=== PATIENT | female | born 1950 | race Caucasian/White ===

== ENCOUNTER 2019-05-20 11:49 | Emergency (ER) | payer MEDICARE, OTHER ==
[2019-05-20] MEDS ORDERED: ASPIRIN 81 MG TABLET, CHEWABLE PO ONE (12:14)
--- NOTE | 2019-05-20 12:14 | ER Document Report ---
ED Medical Screen (RME) - General Chief Complaint: Blood Pressure Problem Stated Complaint: ARM PAIN Time Seen by Provider: 05/20/19 12:09 Mode of Arrival: Ambulatory Information source: Patient Notes: 69-year-old female presents to ED for complaint of left arm and hand pain after she fell a week ago Wednesday. When they were checking her they found she had high blood pressure and she does have a history of high blood pressure she is not on any medications for this high blood pressure. Her blood pressure is 230/99. Manual cuff with a large cuff is 236/112 right arm. I have greeted and performed a rapid initial assessment of this patient. A comprehensive ED assessment and evaluation of the patient, analysis of test results and completion of medical decision making process will be conducted by an additional ED providers. - Related Data Allergies/Adverse Reactions: No Known Allergies Allergy (Unverified 05/20/19 12:08) Past Medical History - Social History Chew tobacco use (# tins/day): No Frequency of alcohol use: Rare Drug Abuse: None Physical Exam - Vital signs Vitals: Temp Pulse Resp BP Pulse Ox 98 F 78 20 230/99 H 98 05/20/19 11:56 05/20/19 11:56 05/20/19 11:56 05/20/19 11:56 05/20/19 11:56 Course - Vital Signs Vital signs: Temp Pulse Resp BP Pulse Ox 98 F 78 20 230/99 H 98 05/20/19 11:56 05/20/19 11:56 05/20/19 11:56 05/20/19 11:56 05/20/19 11:56
[2019-05-20] MEDS ORDERED: HYDRALAZINE HCL INJ/PF 20 MG/1 ML SDV IV ONE (13:16)
[2019-05-20 13:17] LABS: ABSOLUTE BASOPHILS # (AUTO) 0.1 10^3/uL (0.0-0.2); ABSOLUTE EOSINOPHILS # (AUTO) 0.2 10^3/uL (0.0-0.6); ABSOLUTE LYMPHOCYTES (AUTO) 3.8 10^3/uL (0.5-4.7); ABSOLUTE MONOCYTES (AUTO) 0.6 10^3/uL (0.1-1.4); ABSOLUTE NEUT (AUTO) 3.7 10^3/uL (1.7-8.2); BASOPHILS % (AUTO) 0.7 % (0-2); EOSINOPHILS % (AUTO) 2.1 % (0-6); HEMATOCRIT 48.8 % (36.0-47.0); HEMOGLOBIN 16.9 g/dL (12.0-15.5); LYMPHOCYTES % (AUTO) 45.7 % (13-45); MEAN CORPUSCULAR HEMOGLOBIN 30.5 pg (27.0-33.4); MEAN CORPUSCULAR HGB CONC 34.6 g/dL (32.0-36.0); MEAN CORPUSCULAR VOLUME 88 fl (80-97); PLATELET COUNT 226 10^3/uL (150-450); RED BLOOD COUNT 5.54 10^6/uL (3.72-5.28); RED CELL DISTRIBUTION WIDTH 13.4 % (11.5-14.0); SEGMENTED NEUTROPHILS % (AUTO) 44.5 % (42-78); TOTAL CELLS COUNTED % (AUTO) 100 %; WHITE BLOOD COUNT 8.3 10^3/uL (4.0-10.5)
[2019-05-20 13:18] LABS: INTERNATIONAL RATION (INR) 0.99; PROTHROMBIN TIME 13.1 SEC (11.4-15.4)
--- NOTE | 2019-05-20 13:18 | ER Document Report ---
ED General - General Chief Complaint: Blood Pressure Problem Stated Complaint: ARM PAIN Time Seen by Provider: 05/20/19 12:09 Mode of Arrival: Ambulatory Notes: Patient is a 69-year-old female who presents emergency department with a chief complaint of left hand pain. Patient also states that she has left hand and le ft hip pain from falling a week and a half ago. Patient states that she did not notice any bruising, but continues to have pain to her left third and fourth fingers. She came in the hospital and she also was severely hypertensive. Her blood pressure is 223/120. Patient was taking hydrochlorothiazide and lisinopril back in September and stopped taking her medications. She states that she gradually ran out and has not found a primary care provider. She is originally from [place]. Patient denies any chest pain, shortness of breath, difficulty breathing, or any other cardiovascular symptoms. - Related Data Allergies/Adverse Reactions: No Known Allergies Allergy (Unverified 05/20/19 12:08) Past Medical History - General Information source: Patient - Social History Smoking Status: Never Smoker Chew tobacco use (# tins/day): No Frequency of alcohol use: Rare Drug Abuse: None Family History: Reviewed & Not Pertinent Patient has suicidal ideation: No Patient has homicidal ideation: No Review of Systems - Review of Systems Notes: REVIEW OF SYSTEMS: CONSTITUTIONAL : Denies recent illness. Denies recent unintentional weight loss. Denies fever, chills, or sweats. EENT: Denies eye, ear, throat, or mouth pain, discharge, or symptoms. Denies nasal or sinus congestion. CARDIOVASCULAR: Denies chest pain. RESPIRATORY: Denies shortness of breath, cough, congestion, difficulty breathing, or wheezing. GASTROINTESTINAL: Denies nausea, vomiting, and diarrhea. Denies abdominal pain. Denies constipation. GENITOURINARY: Denies difficulty urinating, burning, blood in urine, urgency or frequency. MUSCULOSKELETAL: Denies neck and back pain. See HPI. SKIN: Denies rash, itchiness, or lesions HEMATOLOGIC : Denies easy bruising or bleeding. LYMPHATIC: Denies swollen, painful, enlarged glands. NEUROLOGICAL: Denies no numbness or tingling denies weakness. Denies headache. Denies altered mental status. Denies alteration in speech. PSYCHIATRIC: Denies stress, anxiety, alteration in sleep patterns, or depression. All other systems reviewed and negative. Physical Exam - Vital signs Vitals: Temp Pulse Resp BP Pulse Ox 98 F 78 20 230/99 H 98 05/20/19 11:56 05/20/19 11:56 05/20/19 11:56 05/20/19 11:56 05/20/19 11:56 - Notes Notes: PHYSICAL EXAMINATION: GENERAL: Appears well, obese, no acute distress. HEAD: Normocephalic, atraumatic. EYES: PERRL, conjunctiva normal, all extraocular movements intact, sclera nonicteric ENT: Moist mucous membranes. NECK: Supple, no noticeable swelling, redness, rash. Normal range of motion. LUNGS: Equal breath sounds bilaterally and clear to auscultation. No wheezes rales or rhonchi. CARDIOVASCULAR: S1-S2, regular rate, regular rhythm. Radial pulses 2+, normal. ABDOMEN: Normoactive bowel sounds. Soft, nontender, no guarding, no rebound tenderness, and no masses palpated. EXTREMITIES: Normal strength and range of motion, no pitting or edema. No cyanosis. Tenderness to the left medial hand on anterior posterior aspects. Tenderness to proximal fourth finger NEUROLOGICAL: Moves all extremities upon command. Strength 5/5 in all extremities. PSYCH: Normal mood, normal affect. SKIN: Warm, dry. No rash, lesions, ulcerations noted. Normal skin turgor. Course - Re-evaluation Re-evalutation: 05/20/19 15:52 Patient's blood pressure has come down with hydralazine. Blood pressure is 177/93. This has improved. Patient's hematology shows hemoglobin of 16.9 with hematocrit of 48.8. I suspect patient is dehydrated. I have encouraged her to drink plenty of fluids. I do not want to add any more fluids, as patient has been hypertensive here in the emergency department. Coagulation studies ordered in triage are unremarkable. Patient's GFR is going down. I have advised her that if she does not take control over her blood pressure, she can admit with the kidney disease. She states that she does not want to have kidney disease and she is now going to follow-up with a primary care provider in [place]. Her BNP is 220, which is not very significant at this moment. Patient denies any shortness of breath. Patient's TSH in triage is 22.2 and her free T4 is 0.63. I have discussed these findings with Dr. Crawford. Dr. Crawford states that at this time, the patient should follow-up with her primary care provider and is not advising patient be started on levothyroxine. Patient denies any symptoms loss of consciousness. She states that she does feel fatigued at times. I explained to the patient that this may be the reason why she feels fatigued. I strongly suggested that the patient follow-up with her primary care provider. She will be started back on hydrochlorothiazide 20 mg p.o. daily. She is in agreement with this plan. Return precautions were given. Follow-up precautions were given. Verbal discharge instructions were given to the patient. They verbalized understanding. They are stable for discharge. - Vital Signs Vital signs: Temp Pulse Resp BP Pulse Ox 98 F 78 19 177/93 H 98 05/20/19 11:56 05/20/19 11:56 05/20/19 15:47 05/20/19 15:47 05/20/19 15:47 - Laboratory Result Diagrams: 05/20/19 12:37 05/20/19 12:37 Laboratory results interpreted by me: 05/20/19 05/20/19 05/20/19 12:37 12:37 12:37 RBC 5.54 H Hgb 16.9 H Hct 48.8 H Lymph % (Auto) 45.7 H Est GFR (MDRD) Non-Af 59 L Glucose 112 H NT-Pro-B Natriuret Pep 220 H TSH Free T4 05/20/19 05/20/19 12:37 12:37 RBC Hgb Hct Lymph % (Auto) Est GFR (MDRD) Non-Af Glucose NT-Pro-B Natriuret Pep TSH 22.20 H Free T4 0.63 L - EKG Interpretation by Me Additional EKG results interpreted by me: 05/20/19 15:54 Sinus rhythm. Rate 67. PA 148; QRS 120; QT 424; QTc 448. Premature atrial complexes noted. Discharge - Discharge Clinical Impression: Elevated TSH, Essential hypertension, Left hand pain Condition: Stable Disposition: HOME, SELF-CARE Additional Instructions: You are seen today in the emergency department for left hand pain. Your blood pressure was very high here in the emergency department. It came down with medication. Your thyroid-stimulating hormone was elevated. Please have this rechecked when you see your primary care provider. You are also being restarted on 1 of your blood pressure medications. Please have this rechecked when you see your primary care doctor.. If you have any numbness, tingling, weakness, blurred vision, or any symptoms that are worrisome to you, please return to the emergency department. Prescriptions: Hydrochlorothiazide [Hydrodiuril 25 mg Tablet] 25 mg PO QAM #30 tablet
[2019-05-20 13:19] LABS: PARTIAL THROMBOPLASTIN TIME 29.1 SEC (23.5-35.8)
[2019-05-20 13:40] LABS: ALBUMIN 4.5 g/dL (3.5-5.0); ALKALINE PHOSPHATASE 97 U/L (38-126); ANION GAP 11 (5-19); ASPARTATE AMINO TRANSFERASE 35 U/L (14-36); BILIRUBIN,DIRECT 0.2 mg/dL (0.0-0.4); BLOOD UREA NITROGEN 20 mg/dL (7-20); CALCIUM 9.5 mg/dL (8.4-10.2); CARBON DIOXIDE 27 mmol/L (22-30); CHLORIDE 101 mmol/L (98-107); CREATINE KINASE 65 U/L (30-135); GLUCOSE 112 mg/dL (75-110)
[2019-05-20 13:55] LABS: CREATINE KINASE MB 0.67 ng/mL (<4.55); NT PRO BNP 220 pg/mL (<125)
[2019-05-20 13:57] LABS: TROPONIN I < 0.012 ng/mL
--- NOTE | 2019-05-20 14:00 | RADIOLOGY REPORT (SQ) ---
EXAM DESCRIPTION: CHEST 2 VIEWS COMPLETED DATE/TIME: 05/20/2019 1:49 pm REASON FOR STUDY: htn pain down left arm COMPARISON: None. TECHNIQUE: Frontal and lateral radiographic views of the chest acquired. NUMBER OF VIEWS: Two view. LIMITATIONS: None. FINDINGS: LUNGS AND PLEURA: No opacities, masses or pneumothorax. No pleural effusion. MEDIASTINUM AND HILAR STRUCTURES: No mass suggested. Mildly uncoiled aorta. HEART AND VASCULAR STRUCTURES: Heart normal size. No evidence for failure. BONES: Osteopenic. HARDWARE: None in the chest. OTHER: No other significant finding. IMPRESSION: NO SIGNIFICANT RADIOGRAPHIC FINDING IN THE CHEST. TECHNICAL DOCUMENTATION: JOB ID: [id number] [employer]- All Rights Reserved Reading location - IP/workstation name: [email or web address]
--- NOTE | 2019-05-20 14:03 | RADIOLOGY REPORT (SQ) ---
EXAM DESCRIPTION: HAND LEFT 3 VIEWS COMPLETED DATE/TIME: 05/20/2019 1:49 pm REASON FOR STUDY: fall COMPARISON: None. NUMBER OF VIEWS: Three views left hand. LIMITATIONS: Pulse oximeter overlies the long finger, partially obscuring. FINDINGS: No fracture. 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 OTHER: No other significant finding. IMPRESSION: No acute radiographic abnormality. Limited. TECHNICAL DOCUMENTATION: JOB ID: [id number] Reading location - IP/workstation name: [email or web address]
--- NOTE | 2019-05-20 14:42 | EKG REPORT ---
SEVERITY:- ABNORMAL ECG - SINUS RHYTHM MULTIPLE ATRIAL PREMATURE COMPLEXES IVCD, CONSIDER ATYPICAL RBBB : Confirmed by: Herber Sylvester MD 20-May-2019 14:41:39
[2019-05-20 15:01] LABS: FREE T3 2.99 pg/mL (2.77-5.27); FREE T4 (FREE THYROXINE) 0.63 ng/dL (0.78-2.19)
[2019-05-20] MEDS ORDERED: HYDROCHLOROTHIAZIDE 25 MG TABLET PO ONE (15:50)
[2019-05-20 16:15] VITALS: BP 177/93
== END 2019-05-20 16:05 | disposition home or self-care (01) ==
LOC: ER 11:49
DX: R94.6 Abnormal results of thyroid function studies (principal); I10 Essential (primary) hypertension; M79.642 Pain in left hand
CPT/HCPCS: 93005; 36415; 84439; 82553; 82550; 83735; 84443; 85025; 85610; 85730; 80053; 84484; 84481; 83880; 71046; 73130; 93010; A9270; J0360